=== PATIENT | female | born 1990 | race Caucasian/White ===

== ENCOUNTER → 2020-01-16 18:00 | Outpatient (BNVA) | payer OTHER, SELFPAY | PROVIDERS: Family Provider Family Medicine; PCP Family Medicine; Visit Provider Family Medicine | DX: I10 Essential (primary) hypertension (principal); E03.9 Hypothyroidism, unspecified; F41.1 Generalized anxiety disorder; F32.1 Major depressive disorder, single episode, moderate; I49.3 Ventricular premature depolarization | CPT/HCPCS: 80053; 83735; 84439; 84443; 84481 ==

== ENCOUNTER → 2020-05-23 11:13 | Outpatient (BNVA) | payer OTHER, SELFPAY | PROVIDERS: Family Provider Family Medicine; PCP Family Medicine; Visit Provider Family Medicine | DX: I10 Essential (primary) hypertension (principal); E03.9 Hypothyroidism, unspecified | CPT/HCPCS: 80053; 84439; 84443; 84481 ==

== ENCOUNTER → 2020-10-10 10:31 | Outpatient (BNVA) | payer OTHER, SELFPAY | PROVIDERS: Family Provider Family Medicine; PCP Family Medicine; Visit Provider Family Medicine | DX: E03.9 Hypothyroidism, unspecified (principal); I10 Essential (primary) hypertension; I49.3 Ventricular premature depolarization | CPT/HCPCS: 84443 ==

== ENCOUNTER → 2020-12-17 13:51 | Outpatient (BNVA) | payer OTHER, SELFPAY | PROVIDERS: Family Provider Family Medicine; PCP Family Medicine; Visit Provider Family Medicine | DX: I10 Essential (primary) hypertension (principal); E03.9 Hypothyroidism, unspecified; F32.1 Major depressive disorder, single episode, moderate; R41.840 Attention and concentration deficit; I49.3 Ventricular premature depolarization; Z68.32 Body mass index [BMI] 32.0-32.9, adult | CPT/HCPCS: 80048; 84439; 84443; 84481 ==

== ENCOUNTER → 2021-01-02 07:53 | Outpatient (BNVA) | payer OTHER, SELFPAY | PROVIDERS: Family Provider Family Medicine; PCP Family Medicine; Visit Provider Nurse Practitioner Women's Health | DX: N92.6 Irregular menstruation, unspecified (principal); I10 Essential (primary) hypertension; E03.9 Hypothyroidism, unspecified | CPT/HCPCS: 81025 ==

== ENCOUNTER 2021-01-07 09:49 | Emergency (ER) | payer OTHER, SELFPAY ==
--- NOTE | 2021-01-07 | US_ITS ---
WS: [id number] Obstetrical ultrasound, less than 14 weeks. HISTORY: Cramping and spotting. COMPARISON: None. The cervix is closed. There is an intrauterine gestational sac with a moderate subchorionic bleed. Sa c is irregularly shaped with a mean diameter of 1.2 cm. Consistent with a gestation of 6 weeks and 1 day. [place]-rump length of 0.36 cm consistent with a gestation 6 weeks 0 days. Normal yolk sac. Cardia c activity is identified at 104 cm/s. Gestational sac is low-lying within the endometrial canal. No free fluid. No adnexal masses. US/US OB <=14 wk fetus w transvag IMPRESSION: 1. cardiac activity is identified. 2. Abnormally shaped and positioned gestational sac and subchorionic bleed. Pat ient is at high risk for continuing with spontaneous . 3. [place]-rump length consistent with gestation of 6 weeks and 0 days.
--- NOTE | 2021-01-07 10:34 | US_ITS ---
WS: [id number] Obstetrical ultrasound, less than 14 weeks. HISTORY: Cramping and spotting. COMPARISON: None. The cervix is closed. There is an intrauterine gestational sac with a moderate subchorionic bleed. Sa c is irregularly shaped with a mean diameter of 1.2 cm. Consistent with a gestation of 6 weeks and 1 day. [place]-rump length of 0.36 cm consistent with a gestation 6 weeks 0 days. Normal yolk sac. Cardia c activity is identified at 104 cm/s. Gestational sac is low-lying within the endometrial canal. No free fluid. No adnexal masses.
[2021-01-07 11:33] VITALS: BP 130/87; PULSE 73; RESP 19; TEMP 37.1; O2SAT 100; BMI 32.3
--- NOTE | 2021-01-07 15:35 | W.ED.PREGNAN ---
Documented by User: AUGUST Tony 01/08/21 08:11 HPI - General: Chief complaint: OB/Uterine Contractions Stated complaint: Cramping & Bleeding, sent by OB Time Seen by Provider: 01/07/21 15:35 Source: patient Mode of arrival: ambulatory Limitations: no limitations History of Present Illness: HPI Narrative: Patient is a nice 30-year-old female at approximately 6 weeks here for concerns of vaginal bleeding that began in the middle of the night. She states she woke up to use the restroom and had a very small amount of pinkish-like discharge. She states this morning when she awoke she had bright red bleeding with a small amount of clot. She states bleeding lasted a few hours and then total soaked approximately 2 pads. She states bleeding subsided around 11 this afternoon and has not returned. She is not currently complaining of cramping or pain. Last sexual intercourse was on Wednesday but did not report any bleeding following this. She has not had any new sexual partners. She does not complain of vaginal discharge, odor, or concern for STDs. No urinary symptoms. MD Complaint: vaginal bleeding Onset (ago): hour(s) Pain Consistency: now resolved Severity: mild Vaginal discharge: none Vaginal bleeding: light and clots Date of Last Menstrual Period: 11/25/20 Patient : Yes care: followed by OB Associated symptoms: Deny abdominal pain, dysuria, headache(s), malaise, nausea, vaginal bleeding, vaginal discharge or vomiting Review of Systems Const: Denies: fever(s), chills, body aches, fatigue or malaise Card: Denies: chest pain Resp: Denies: dyspnea GI: Denies: abdominal pain, nausea, vomiting or diarrhea : Reports: vaginal bleeding; Denies: flank pain, dysuria, hematuria, genital lesions, genital pruritis, vaginal odor, vaginal discharge or pelvic pain Musc: Denies: back pain Skin/Breast: Denies: rash Neuro: Denies: headache(s) PFSH ED PFSH: Medical History (Updated 01/07/21 @ 17:28 by AUGUST Chirinos) Depression She was started on prozac in 2019 and started having PVCs. She stopped due to the pvc, and then was shortly after diagnosed with HTN. She feels her depression is intermittent and managed without medication. ANDREA (generalized anxiety disorder) She was started on prozac in 2019 and started having PVCs. She stopped due to the pvc, and then was shortly after diagnosed with HTN. She feels her depression is intermittent and managed without medication. Hypertension She was started on lisinopril in 2019, stopped on 12/27/2020 due to positive . Hypothyroidism PVCs (premature ventricular contractions) managed by PCP Surgical History No pertinent past surgical history Family History Father Depression Diabetes Mother Depression Thyroid disease Grandmother Diabetes Paternal Hypertension paternal Stroke paternal Thyroid disease paternal Breast cancer maternal Family/Other Hypertension sister Grandfather Stroke maternal Denies family history of Colon cancer Ovarian cancer Clotting disorder Bleeding disorder Uterine cancer Female Reproductive History: Date of last menstrual period: 11/25/20 Spontaneous abortions: No Physical Exam Const: COMMON NORMALS: no acute distress, average body habitus, patient oriented x3, no limitations, healthy appearing, alert and well nourished GENERAL APPEARANCE: cooperative Resp: COMMON NORMALS: normal respiratory effort and clear to auscultation bilaterally AUSCULTATION: clear to auscultation bilaterally Cardio: COMMON NORMALS: regular rate and regular rhythm RATE: regular rate RHYTHM: regular rhythm GI: COMMON NORMALS: Normal to inspection, nondistended, normoactive bowel sounds present, Soft to palpation, non-tender, No hepatosplenomegaly present and no masses PALPATION: Yes Soft to palpation and Yes No hepatosplenomegaly present : SPECULUM EXAM - VAGINA: No vaginal bleeding and No tissue present in vagina SPECULUM EXAM - CERVIX: Yes Cervical os closed, No Tissue present in the cervical os, No Cervical bleeding, Yes Abnormal cervical discharge present (mild amount of yellow mucous like discharge), Yes Cervical lesion present (erythema/friability surrounding os; remainder of cervical tissue normal) and Yes Cervical tenderness present BIMANUAL EXAM - VAGINA & UTERUS: Yes Cervical tenderness present OB/EXTERNAL & SPECULUM: no tissue noted in vagina and vaginal bleeding Neuro: COMMON NORMALS: patient oriented x3 SENSORIUM/ORIENTATION: Yes alert Course Vital Signs: Vital signs: Vital Signs Temperature 98.7 F 01/07/21 11:33 Pulse Rate 74 01/07/21 16:27 Respiratory Rate 18 01/07/21 16:27 Blood Pressure 127/85 01/07/21 16:27 Pulse Oximetry 100 01/07/21 16:27 MDM - OB/Uterine Contractions MDM Narrative: Medical decision making narrative: Care is being transferred to Que Rowland PA-C pending labs. US was completed from waiting room and shows an abnormally shaped gestational sac, low lying position within the endometrial canal, and a moderate subchorionic hemorrhage thus making her at high risk for spontaneous AB. On pelvic exam she had a large area of erythema/friability/tenderness surrounding her cervical os with a mild amount of yellow discharge-no diffuse cervicitis. Unknown when her last PAP exam was. Will go ahead and cover empirically with abx at this time and have her follow up with [facility] for further evaluation. Recommend pelvic rest until follow up as well. Lab Data: Labs: Lab Results 01/07/21 01/07/21 01/07/21 15:53 16:20 16:20 WBC 9.9 10^3/uL 10^3/ uL (4.0-10.0) RBC 5.05 10^6/uL 10^6 /uL (4.1-5.3) Hgb 13.9 g/dL g/dL (11.5-15.3) Hct 42.7 % % (37.0-47.0) MCV 84.6 fl fl (81-99) MCH 27.5 pg L pg (28.0-34.0) MCHC 32.6 g/dL g/dL (30.0-36.0) RDW 13.9 % % (12.1-15.1) Plt Count 240 10^3/cmm 10^3 /cmm (130-400) MPV 10.7 fL H fL (7.4-10.4) Neut % (Auto) 73.9 % % Lymph % (Auto) 15.8 % % [place] % (Auto) 7.7 % % Eos % (Auto) 1.9 % % Baso % (Auto) 0.4 % % Neut # (Auto) 7.27 10^3/uL 10^3 /uL (1.8-7.7) Lymph # (Auto) 1.6 10^3/uL 10^3/ uL (0.8-4.8) [place] # (Auto) 0.8 10^3/uL 10^3/ uL (0.2-0.9) Eos # (Auto) 0.2 10^3/uL 10^3/ uL (0.0-0.8) Baso # (Auto) 0.0 10^3/uL 10^3/ uL (0.0-0.1) Nucleated RBC % (a uto) 0 % % Nucleated RBCs # 0.0 /100WBC /100W BC Sodium 136 mmol/L mmol/L (136-145) Potassium 3.7 mmol/L mmol/L (3.5-5.1) Chloride 102 mmol/L mmol/L (98-107) Carbon Dioxide 21 mmol/L L mmol/ L (22-29) Anion Gap 16.7 (5-19) BUN 9 mg/dL mg/dL (6-20) Creatinine 0.5 mg/dL mg/dL (0.5-0.9) GFR Calculation 146.9 mL/min H mL /min (90-130) Glucose 75 mg/dL mg/dL (65-115) Calculated Osmolal ity 279 mOsm/kg L mOs m/kg (285-295) Calcium 9.0 mg/dL mg/dL (8.5-10.5) Total Bilirubin 0.6 mg/dL mg/dL (0.15-1.2) AST 21 U/L U/L (0-32) ALT 48 U/L H U/L (0-33) Alkaline Phosphata se 63 IU/L IU/L (35-105) Total Protein 7.3 g/dL g/dL (6.6-8.7) Albumin 4.1 g/dL g/dL (3.5-5.2) Globulin 3.2 g/dL g/dL (1.3-4.6) Ser , [place] 22652.00 mIU/mL m IU/mL Urine Color Straw (Yellow) Urine Appearance Clear (CLEAR) Urine pH 5 (5-7) Ur Specific Gravit y 1.020 (1.005-1.030) Urine Protein Neg (Negative) Urine Glucose (UA) Norm (Normal) Urine Ketones Negative (Negative) Urine Blood Neg (Negative) Urine Nitrate Negative (Negative) Urine Bilirubin Neg (Negative) Urine Urobilinogen Norm mg/dL mg/dL (Negative) Ur Leukocyte Vanesa ase Negative (Negative) Blood Type Rho(D) Type 01/07/21 16:20 WBC RBC Hgb Hct MCV MCH MCHC RDW Plt Count MPV Neut % (Auto) Lymph % (Auto) [place] % (Auto) Eos % (Auto) Baso % (Auto) Neut # (Auto) Lymph # (Auto) [place] # (Auto) Eos # (Auto) Baso # (Auto) Nucleated RBC % (a uto) Nucleated RBCs # Sodium Potassium Chloride Carbon Dioxide Anion Gap BUN Creatinine GFR Calculation Glucose Calculated Osmolal ity Calcium Total Bilirubin AST ALT Alkaline Phosphata se Total Protein Albumin Globulin Ser , [place] i-Qnt Urine Color Urine Appearance Urine pH Ur Specific Gravit y Urine Protein Urine Glucose (UA) Urine Ketones Urine Blood Urine Nitrate Urine Bilirubin Urine Urobilinogen Ur Leukocyte Vanesa ase Blood Type B Positive Rho(D) Type Positive Imaging Data^: US TV OB: Radiologist's impression: [address] [address] Ultrasound Report Signed Patient: Lucía Ybarra Unit #: [id number] : 1990 Age/Sex: 30 / F ADM Date: 01/07/21 Loc: ER Room/Bed: Attending Dr: Ordering Provider/Ordering MD: Quiana Carmichael Date of Service: 01/07/21 Procedure(s): US OB transvaginal [id number] Accession Number(s): [id number] Report Number: [id number] WS: [id number] Obstetrical ultrasound, less than 14 weeks. HISTORY: Cramping and spotting. COMPARISON: None. The cervix is closed. There is an intrauterine gestational sac with a moderate subchorionic bleed. Sac is irregularly shaped with a mean diameter of 1.2 cm. Consistent with a gestation of 6 weeks and 1 day. [place]-rump length of 0.36 cm consistent with a gestation 6 weeks 0 days. Normal yolk sac. Cardiac activity is identified at 104 cm/s. Gestational sac is low-lying within the endometrial canal. No free fluid. No adnexal masses. US/US OB transvaginal [id number] IMPRESSION: 1. cardiac activity is identified. 2. Abnormally shaped and positioned gestational sac and subchorionic bleed. Patient is at high risk for continuing with spontaneous . 3. [place]-rump length consistent with gestation of 6 weeks and 0 days. Dictated By: Marly Sarmiento DO Signed By: Marly Sarmiento DO Signed Date/Time: 01/07/21 1431 Discharge Plan Discharge Patient Disposition: Home Clinical Impression: Threatened miscarriage Condition: Stable Prescriptions: No Action levothyroxine 125 mcg tablet 125 mcg .ROUTE DAILY 30 Days Qty: 30 RF: 2 Discharge Orders: Discharge ED (Routine); Ordered 01/07/21 Ordered By: Que Rowland Referrals: Daksha Rodriguez MD [Primary Care Provider] - Discharge Diet: Regular Discharge Activity: Limit activity as instructed Patient Instructions: Threatened Miscarriage (ED), Pelvic Rest (ED) Activity Restrictions/Additional Instructions: Follow-up with OB doctor within the next 3 to 5 days for reevaluation. Return to the ER or your medical provider if condition worsens (fever, heavy bleeding, abdominal pain, N/V). Please read and understand discharge instructions. US findings: 1. cardiac activity is identified. [place]-rump length consistent with gestation of 6 weeks and 0 days. 2. Abnormally shaped and positioned gestational sac and subchorionic bleed. Patient is at high risk for continuing with spontaneous . Thank you for choosing [facility] for your healthcare needs today. Please realize this is an emergency room and that we are providing you with a medical screening exam and this may not be complete and all inclusive of all the testing and or work up that you may need to determine your ailment or severity of your illness. It is very important that you follow up as instructed or that you return to the Emergency Department should you have concerns or if your condition changes or worsens in any way. Stand Alone Forms: Work/School Release Sign Out Sign Out Data: Patient Sign Out occurred on 01/07/21 at 17:07. Patient's care was discussed, and care was transferred from to AUGUST Chirinos. Coding Level of Care Code ED Lathe Operator for Chg Fwd Exam Detailed Documented by User: AUGUST Chirinos 01/08/21 03:04 HPI - General: Chief complaint: OB/Uterine Contractions Stated complaint: Cramping & Bleeding, sent by OB Time Seen by Provider: 01/07/21 15:35 PFSH ED PFSH: Medical History (Updated 01/07/21 @ 17:28 by AUGUST Chirinos) Depression She was started on prozac in 2019 and started having PVCs. She stopped due to the pvc, and then was shortly after diagnosed with HTN. She feels her depression is intermittent and managed without medication. ANDREA (generalized anxiety disorder) She was started on prozac in 2019 and started having PVCs. She stopped due to the pvc, and then was shortly after diagnosed with HTN. She feels her depression is intermittent and managed without medication. Hypertension She was started on lisinopril in 2019, stopped on 12/27/2020 due to positive . Hypothyroidism PVCs (premature ventricular contractions) managed by PCP Surgical History No pertinent past surgical history Family History Father Depression Diabetes Mother Depression Thyroid disease Grandmother Diabetes Paternal Hypertension paternal Stroke paternal Thyroid disease paternal Breast cancer maternal Family/Other Hypertension sister Grandfather Stroke maternal Denies family history of Colon cancer Ovarian cancer Clotting disorder Bleeding disorder Uterine cancer Course Vital Signs: Vital signs: Vital Signs Temperature 98.7 F 01/07/21 11:33 Pulse Rate 74 01/07/21 16:27 Respiratory Rate 18 01/07/21 16:27 Blood Pressure 127/85 01/07/21 16:27 Pulse Oximetry 100 01/07/21 16:27 MDM - OB/Uterine Contractions MDM Narrative: Medical decision making narrative: Patient is a 30-year-old female comes to the ED with vaginal bleeding and is approximately 6 weeks . Patient had some heavy bleeding in the morning but then it resolved around lunchtime today and she has not had any reoccurring bleeding since. Patient appears nontoxic in no acute distress or pain. Vitals are stable. CBC, CMP are unremarkable. hCG 15,822. Rh type positive. UA unremarkable. Wet prep showed no acute findings. Gonorrhea and Chlamydia panel pending. Ultrasound showed cardiac activity with gestation of around 6 weeks. Abnormally shaped and positioned gestational sac and subchorionic bleeding noted as well. Patient is at high risk of miscarriage. Patient was given prophylactic treatment here in the ED for gonorrhea and chlamydia with Rocephin and azithromycin. A referral to women's health was placed for abnormal cervix and threatened . Patient was diagnosed with threatened and discharged home. She was told to be on pelvic rest. Return to ED precautions given. Patient was told case management will be contacting them in the next several days set up an appointment with women's health. Lab Data: Attestation: I reviewed the patient's lab results. Labs: Lab Results 01/07/21 01/07/21 01/07/21 15:53 16:20 16:20 WBC 9.9 10^3/uL 10^3/ uL (4.0-10.0) RBC 5.05 10^6/uL 10^6 /uL (4.1-5.3) Hgb 13.9 g/dL g/dL (11.5-15.3) Hct 42.7 % % (37.0-47.0) MCV 84.6 fl fl (81-99) MCH 27.5 pg L pg (28.0-34.0) MCHC 32.6 g/dL g/dL (30.0-36.0) RDW 13.9 % % (12.1-15.1) Plt Count 240 10^3/cmm 10^3 /cmm (130-400) MPV 10.7 fL H fL (7.4-10.4) Neut % (Auto) 73.9 % % Lymph % (Auto) 15.8 % % [place] % (Auto) 7.7 % % Eos % (Auto) 1.9 % % Baso % (Auto) 0.4 % % Neut # (Auto) 7.27 10^3/uL 10^3 /uL (1.8-7.7) Lymph # (Auto) 1.6 10^3/uL 10^3/ uL (0.8-4.8) [place] # (Auto) 0.8 10^3/uL 10^3/ uL (0.2-0.9) Eos # (Auto) 0.2 10^3/uL 10^3/ uL (0.0-0.8) Baso # (Auto) 0.0 10^3/uL 10^3/ uL (0.0-0.1) Nucleated RBC % (a uto) 0 % % Nucleated RBCs # 0.0 /100WBC /100W BC Sodium 136 mmol/L mmol/L (136-145) Potassium 3.7 mmol/L mmol/L (3.5-5.1) Chloride 102 mmol/L mmol/L (98-107) Carbon Dioxide 21 mmol/L L mmol/ L (22-29) Anion Gap 16.7 (5-19) BUN 9 mg/dL mg/dL (6-20) Creatinine 0.5 mg/dL mg/dL (0.5-0.9) GFR Calculation 146.9 mL/min H mL /min (90-130) Glucose 75 mg/dL mg/dL (65-115) Calculated Osmolal ity 279 mOsm/kg L mOs m/kg (285-295) Calcium 9.0 mg/dL mg/dL (8.5-10.5) Total Bilirubin 0.6 mg/dL mg/dL (0.15-1.2) AST 21 U/L U/L (0-32) ALT 48 U/L H U/L (0-33) Alkaline Phosphata se 63 IU/L IU/L (35-105) Total Protein 7.3 g/dL g/dL (6.6-8.7) Albumin 4.1 g/dL g/dL (3.5-5.2) Globulin 3.2 g/dL g/dL (1.3-4.6) Ser , [place] i[place]Qnt 38506.00 mIU/mL m IU/mL Urine Color Straw (Yellow) Urine Appearance Clear (CLEAR) Urine pH 5 (5-7) Ur Specific Gravit y 1.020 (1.005-1.030) Urine Protein Neg (Negative) Urine Glucose (UA) Norm (Normal) Urine Ketones Negative (Negative) Urine Blood Neg (Negative) Urine Nitrate Negative (Negative) Urine Bilirubin Neg (Negative) Urine Urobilinogen Norm mg/dL mg/dL (Negative) Ur Leukocyte Vanesa ase Negative (Negative) Blood Type Rho(D) Type 01/07/21 16:20 WBC RBC Hgb Hct MCV MCH MCHC RDW Plt Count MPV Neut % (Auto) Lymph % (Auto) [place] % (Auto) Eos % (Auto) Baso % (Auto) Neut # (Auto) Lymph # (Auto) [place] # (Auto) Eos # (Auto) Baso # (Auto) Nucleated RBC % (a uto) Nucleated RBCs # Sodium Potassium Chloride Carbon Dioxide Anion Gap BUN Creatinine GFR Calculation Glucose Calculated Osmolal ity Calcium Total Bilirubin AST ALT Alkaline Phosphata se Total Protein Albumin Globulin Ser , [place] i-Qnt Urine Color Urine Appearance Urine pH Ur Specific Gravit y Urine Protein Urine Glucose (UA) Urine Ketones Urine Blood Urine Nitrate Urine Bilirubin Urine Urobilinogen Ur Leukocyte Vanesa ase Blood Type B Positive Rho(D) Type Positive Discharge Plan Discharge Patient Disposition: Home Clinical Impression: Threatened miscarriage Condition: Stable Prescriptions: No Action levothyroxine 125 mcg tablet 125 mcg .ROUTE DAILY 30 Days Qty: 30 RF: 2 Discharge Orders: Discharge ED (Routine); Ordered 01/07/21 Ordered By: Que Rowland Referrals: Daksha Rodriguez MD [Primary Care Provider] - Discharge Diet: Regular Discharge Activity: Limit activity as instructed Patient Instructions: Threatened Miscarriage (ED), Pelvic Rest (ED) Activity Restrictions/Additional Instructions: Follow-up with OB doctor within the next 3 to 5 days for reevaluation. Return to the ER or your medical provider if condition worsens (fever, heavy bleeding, abdominal pain, N/V). Please read and understand discharge instructions. US findings: 1. cardiac activity is identified. [place]-rump length consistent with gestation of 6 weeks and 0 days. 2. Abnormally shaped and positioned gestational sac and subchorionic bleed. Patient is at high risk for continuing with spontaneous . Thank you for choosing [facility] for your healthcare needs today. Please realize this is an emergency room and that we are providing you with a medical screening exam and this may not be complete and all inclusive of all the testing and or work up that you may need to determine your ailment or severity of your illness. It is very important that you follow up as instructed or that you return to the Emergency Department should you have concerns or if your condition changes or worsens in any way. Stand Alone Forms: Work/School Release Sign Out Sign Out Data: Patient Sign Out occurred on 01/07/21 at 17:07. Patient's care was discussed, and care was transferred from to AUGUST Chirinos. Coding Level of Care Code ED Lathe Operator for Chg Fwd Exam Detailed Documented by User: Gomez Schilling DO 01/08/21 06:08 HPI - General: Chief complaint: OB/Uterine Contractions Stated complaint: Cramping & Bleeding, sent by OB Time Seen by Provider: 01/07/21 15:35 PFSH ED PFSH: Medical History (Updated 01/07/21 @ 17:28 by AUGUST Chirinos) Depression She was started on prozac in 2019 and started having PVCs. She stopped due to the pvc, and then was shortly after diagnosed with HTN. She feels her depression is intermittent and managed without medication. ANDREA (generalized anxiety disorder) She was started on prozac in 2019 and started having PVCs. She stopped due to the pvc, and then was shortly after diagnosed with HTN. She feels her depression is intermittent and managed without medication. Hypertension She was started on lisinopril in 2019, stopped on 12/27/2020 due to positive . Hypothyroidism PVCs (premature ventricular contractions) managed by PCP Surgical History No pertinent past surgical history Family History Father Depression Diabetes Mother Depression Thyroid disease Grandmother Diabetes Paternal Hypertension paternal Stroke paternal Thyroid disease paternal Breast cancer maternal Family/Other Hypertension sister Grandfather Stroke maternal Denies family history of Colon cancer Ovarian cancer Clotting disorder Bleeding disorder Uterine cancer Course Vital Signs: Vital signs: Vital Signs Temperature 98.7 F 01/07/21 11:33 Pulse Rate 74 01/07/21 16:27 Respiratory Rate 18 01/07/21 16:27 Blood Pressure 127/85 01/07/21 16:27 Pulse Oximetry 100 01/07/21 16:27 MDM - OB/Uterine Contractions MDM Narrative: Medical decision making narrative: Patient seen by AUGUST Tony. Chart reviewed agree with assessment and plan Lab Data: Labs: Lab Results 01/07/21 01/07/21 01/07/21 15:53 16:20 16:20 WBC 9.9 10^3/uL 10^3/ uL (4.0-10.0) RBC 5.05 10^6/uL 10^6 /uL (4.1-5.3) Hgb 13.9 g/dL g/dL (11.5-15.3) Hct 42.7 % % (37.0-47.0) MCV 84.6 fl fl (81-99) MCH 27.5 pg L pg (28.0-34.0) MCHC 32.6 g/dL g/dL (30.0-36.0) RDW 13.9 % % (12.1-15.1) Plt Count 240 10^3/cmm 10^3 /cmm (130-400) MPV 10.7 fL H fL (7.4-10.4) Neut % (Auto) 73.9 % % Lymph % (Auto) 15.8 % % [place] % (Auto) 7.7 % % Eos % (Auto) 1.9 % % Baso % (Auto) 0.4 % % Neut # (Auto) 7.27 10^3/uL 10^3 /uL (1.8-7.7) Lymph # (Auto) 1.6 10^3/uL 10^3/ uL (0.8-4.8) [place] # (Auto) 0.8 10^3/uL 10^3/ uL (0.2-0.9) Eos # (Auto) 0.2 10^3/uL 10^3/ uL (0.0-0.8) Baso # (Auto) 0.0 10^3/uL 10^3/ uL (0.0-0.1) Nucleated RBC % (a uto) 0 % % Nucleated RBCs # 0.0 /100WBC /100W BC Sodium 136 mmol/L mmol/L (136-145) Potassium 3.7 mmol/L mmol/L (3.5-5.1) Chloride 102 mmol/L mmol/L (98-107) Carbon Dioxide 21 mmol/L L mmol/ L (22-29) Anion Gap 16.7 (5-19) BUN 9 mg/dL mg/dL (6-20) Creatinine 0.5 mg/dL mg/dL (0.5-0.9) GFR Calculation 146.9 mL/min H mL /min (90-130) Glucose 75 mg/dL mg/dL (65-115) Calculated Osmolal ity 279 mOsm/kg L mOs m/kg (285-295) Calcium 9.0 mg/dL mg/dL (8.5-10.5) Total Bilirubin 0.6 mg/dL mg/dL (0.15-1.2) AST 21 U/L U/L (0-32) ALT 48 U/L H U/L (0-33) Alkaline Phosphata se 63 IU/L IU/L (35-105) Total Protein 7.3 g/dL g/dL (6.6-8.7) Albumin 4.1 g/dL g/dL (3.5-5.2) Globulin 3.2 g/dL g/dL (1.3-4.6) Ser , [place]Qnt 25360.00 mIU/mL m IU/mL Urine Color Straw (Yellow) Urine Appearance Clear (CLEAR) Urine pH 5 (5-7) Ur Specific Gravit y 1.020 (1.005-1.030) Urine Protein Neg (Negative) Urine Glucose (UA) Norm (Normal) Urine Ketones Negative (Negative) Urine Blood Neg (Negative) Urine Nitrate Negative (Negative) Urine Bilirubin Neg (Negative) Urine Urobilinogen Norm mg/dL mg/dL (Negative) Ur Leukocyte Vanesa ase Negative (Negative) Blood Type Rho(D) Type 01/07/21 16:20 WBC RBC Hgb Hct MCV MCH MCHC RDW Plt Count MPV Neut % (Auto) Lymph % (Auto) [place] % (Auto) Eos % (Auto) Baso % (Auto) Neut # (Auto) Lymph # (Auto) [place] # (Auto) Eos # (Auto) Baso # (Auto) Nucleated RBC % (a uto) Nucleated RBCs # Sodium Potassium Chloride Carbon Dioxide Anion Gap BUN Creatinine GFR Calculation Glucose Calculated Osmolal ity Calcium Total Bilirubin AST ALT Alkaline Phosphata se Total Protein Albumin Globulin Ser , [place] i-Qnt Urine Color Urine Appearance Urine pH Ur Specific Gravit y Urine Protein Urine Glucose (UA) Urine Ketones Urine Blood Urine Nitrate Urine Bilirubin Urine Urobilinogen Ur Leukocyte Vanesa ase Blood Type B Positive Rho(D) Type Positive Discharge Plan Discharge Patient Disposition: Home Clinical Impression: Threatened miscarriage Condition: Stable Prescriptions: No Action levothyroxine 125 mcg tablet 125 mcg .ROUTE DAILY 30 Days Qty: 30 RF: 2 Discharge Orders: Discharge ED (Routine); Ordered 01/07/21 Ordered By: Que Rowland Referrals: Daksha Rodriguez MD [Primary Care Provider] - Discharge Diet: Regular Discharge Activity: Limit activity as instructed Patient Instructions: Threatened Miscarriage (ED), Pelvic Rest (ED) Activity Restrictions/Additional Instructions: Follow-up with OB doctor within the next 3 to 5 days for reevaluation. Return to the ER or your medical provider if condition worsens (fever, heavy bleeding, abdominal pain, N/V). Please read and understand discharge instructions. US findings: 1. cardiac activity is identified. [place]-rump length consistent with gestation of 6 weeks and 0 days. 2. Abnormally shaped and positioned gestational sac and subchorionic bleed. Patient is at high risk for continuing with spontaneous . Thank you for choosing [facility] for your healthcare needs today. Please realize this is an emergency room and that we are providing you with a medical screening exam and this may not be complete and all inclusive of all the testing and or work up that you may need to determine your ailment or severity of your illness. It is very important that you follow up as instructed or that you return to the Emergency Department should you have concerns or if your condition changes or worsens in any way. Stand Alone Forms: Work/School Release Sign Out Sign Out Data: Patient Sign Out occurred on 01/07/21 at 17:07. Patient's care was discussed, and care was transferred from to AUGUST Chirinos. Coding Level of Care Code ED Lathe Operator for Chg Fwd Exam Detailed
[2021-01-07 16:06] LABS: Add Urine Microscopic? NO; Charge for UA Resulting for Rev
[2021-01-07 16:21] LABS: Bilirubin Urine Neg (Negative); Blood Urine Neg (Negative); Glucose Urine UA Norm (Normal); Ketones Urine Negative (Negative); Leukocyte Esterase Urine Negative (Negative); Nitrate Urine Negative (Negative); Protein Urine Neg (Negative); Urine Appearance Clear (CLEAR); Urine Color Straw (Yellow); Urobilinogen Urine Norm (Negative); pH Urine 5 (5-7)
[2021-01-07 16:27] VITALS: BP 127/85; PULSE 74; RESP 18; O2SAT 100
[2021-01-07 16:29] LABS: Basophils % 0.4 %; Eosinophils # 0.2 10^3/uL (0.0-0.8); Eosinophils % 1.9 %; Hematocrit 42.7 % (37.0-47.0); Hemoglobin 13.9 g/dL (11.5-15.3); Lymphocytes # 1.6 10^3/uL (0.8-4.8); Lymphocytes % 15.8 %; Mean Corpuscular HGB Conc 32.6 g/dL (30.0-36.0); Mean Corpuscular Hemoglobin 27.5 pg (28.0-34.0); Mean Corpuscular Volume 84.6 fl (81-99); Mean Platelet Volume 10.7 fL (7.4-10.4); Monocytes # 0.8 10^3/uL (0.2-0.9); Monocytes % 7.7 %; Neutrophils # 7.27 10^3/uL (1.8-7.7); Neutrophils % 73.9 %; Nucleated Red Blood Cells % 0 %; Platelet Count 240 10^3/cmm (130-400); Red Blood Count 5.05 10^6/uL (4.1-5.3); Red Cell Distribution Width 13.9 % (12.1-15.1); White Blood Count 9.9 10^3/uL (4.0-10.0)
[2021-01-07 17:20] LABS: Alanine Aminotransferase 48 U/L (0-33); Albumin Level 4.1 g/dL (3.5-5.2); Alkaline Phosphatase 63 IU/L (35-105); Anion Gap 16.7 (5-19); Aspartate Amino Transferase 21 U/L (0-32); Blood Urea Nitrogen 9 mg/dL (6-20); Carbon Dioxide 21 mmol/L (22-29); Chloride 102 mmol/L (98-107); Globulin 3.2 g/dL (1.3-4.6); Glomerular Filtration Rate 146.9 mL/min (90-130); Glucose 75 mg/dL (65-115); Osmolality Calculated 279 mOsm/kg (285-295); Potassium 3.7 mmol/L (3.5-5.1); Sodium 136 mmol/L (136-145); Total Bilirubin 0.6 mg/dL (0.15-1.2); Total Protein 7.3 g/dL (6.6-8.7)
[2021-01-07] MEDS: azithromycin 250 mg Tablet 1000 MG PO (17:43)
--- NOTE | 2021-01-13 15:41 | DCPLANNER ---
generation manager had message to schedule a follow up appointment for patient with [facility]. generation manager called the [facility] clinic, spoke with Guillaume, gave clinic patients information. generation manager was told that patients information would be printed and reviewed. Clinic will call patient with appointment information.
--- NOTE | 2021-02-06 10:49 | DCPLANNER ---
Patient had a follow up appointment for patient with [facility] - patient did attend appointment.
== END 2021-01-07 17:52 | disposition home or self-care (01) ==
PROVIDERS: Physician Assistant; Emergency Provider Physician Assistant; PCP Family Medicine
DX: O20.0 Threatened abortion (principal); O10.011 Pre-existing essential hypertension complicating pregnancy, first trimester; Z3A.01 Less than 8 weeks gestation of pregnancy
CPT/HCPCS: 36415; 76801; 76817; 80053; 81003; 84702; 85025; 86900; 87210; 87491; 87591; 96372; 99283; J0696; Q0144

== ENCOUNTER → 2021-02-04 12:32 | Outpatient (BNVA) | payer OTHER, SELFPAY | PROVIDERS: PCP Family Medicine; Visit Provider Obstetrics & Gynecology | DX: Z34.90 Encounter for supervision of normal pregnancy, unspecified, unspecified trimester (principal) | CPT/HCPCS: 80053; 80307; 82570; 84156; 84315; 84443; 84550; 85027; 86592; 86762; 86803; 86850; 86900; 87086; 87340; 87806 ==

== ENCOUNTER → 2021-02-24 15:31 | Outpatient (BNVA) | payer OTHER, SELFPAY | PROVIDERS: PCP Family Medicine; Visit Provider Obstetrics & Gynecology | DX: O09.90 Supervision of high risk pregnancy, unspecified, unspecified trimester (principal) | CPT/HCPCS: 84156; 84315; 88175 ==

== ENCOUNTER → 2021-03-19 08:19 | Outpatient (BNVA) | payer OTHER, SELFPAY | PROVIDERS: PCP Family Medicine; Visit Provider Nurse Practitioner Women's Health | DX: O09.90 Supervision of high risk pregnancy, unspecified, unspecified trimester (principal) | CPT/HCPCS: 84315; 84443 ==

== ENCOUNTER 2021-03-25 13:05 | Outpatient (CLI) | payer OTHER, MEDICAID, SELFPAY ==
--- NOTE | 2021-03-25 13:08 | USCV_ITS ---
Lucía Ybarra Age: 31 Gender: F : 1990 Exam Date: 03/25/2021 13:42 Ordering Phys: Adore Hastings MD Technologist: TWIN Exam Location: [facility] [place] Indication: Essential primary hypertension BP: 124 / 80 HR: 75 Rhythm: Sinus Technical Quality: Adequate MEASUREMENTS (Male / Female) Normal Values 2D ECHO LV Diastolic Diameter PLAX 4.6 cm 4.2 - 5.9 / 3.9 - 5.3 cm LV Systolic Diameter PLAX 3.1 cm IVS Diastolic Thickness 0.9 cm 0.6 - 1.0 / 0.6 - 0.9 cm IVS Systolic Thickness 1.2 cm LVPW Diastolic Thickness 1.2 cm 0.6 - 1.0 / 0.6 - 0.9 cm LVPW Systolic Thickness 1.6 cm RV Chamber Size 3.2 cm LVOT Diameter 2.0 cm LV Ejection Fraction 2D Teich 60.3 % LV Ejection Fraction MOD 2C 61.6 % LV Ejection Fraction 2C AL 61.7 % LA Diameter 3.5 cm LA Width 2.9 cm LA Height 5.2 cm RA Width 2.7 cm RA Height 4.6 cm Aorta at Sinotubular Diameter 2.5 cm M-MODE Aortic Annulus Diameter 2.3 cm LA Ao Ratio MM 1.5 MV E Point Septal Separation 0.7 cm DOPPLER AV Peak Velocity 142.0 cm/s LVOT Peak Velocity 112.0 cm/s AV Area Cont Eq vti 2.4 cm squared AV Area Cont Eq pk 2.5 cm squared MV Area PHT 3.9 cm squared Mitral E to A Ratio 1.6 MV E' Velocity 52.5 cm/s Mitral E to MV E' Ratio 5.4 Mitral E to LV E' Lateral Ratio 5.0 Mitral E to LV E' Septal Ratio 5.8 TR Peak Velocity 201.4 cm/s TR Peak Gradient 16.2 mmHg TR Mean Velocity 129.0 cm/s TR Mean Gradient 7.4 mmHg TR Velocity Time Integral 43.0 cm TV Peak E Velocity 81.0 cm/s Right Atrial Pressure 3.0 mmHg Pulmonary Artery Systolic Pressu 19.2 mmHg PV Peak Velocity 129.0 cm/s RV Acceleration Time 0.2 s RV Ejection Time 0.3 s RV AcT/ET 0.5 FINDINGS Left Ventricle Normal left ventricular size and systolic function, EF 61 %. No regional wall motion abnormalities. (Patient is 17 weeks ) Right Ventricle The right ventricle is normal in size and function. Right Atrium The right atrium is normal in size. Left Atrium The left atrium is normal in size. Mitral Valve No gross abnormalities noted Aortic Valve No gross abnormalities noted Tricuspid Valve No gross abnormalities noted Pulmonic Valve Structurally normal pulmonic valve without significant stenosis. There is no pulmonic regurgitation. Pericardium No significant pericardial effusion Aorta Normal aortic annulus size. CONCLUSIONS Normal left ventricular size and systolic function, EF 61 %. No regional wall motion abnormalities. There is no pericardial effusion. There are no intracardiac masses. No evidence of aortic coarctation No previous study is available for comparison. Dr Fermín Cage MD FACC (Electronically Signed) Final Date: 25 March 2021 19:23 S
--- NOTE | 2021-03-25 14:21 | ECG_ITS ---
[facility] Test Date: 2021-03-25 Pat Name: Lucía Ybarra Department: Room: Gender: Female Financial Underwriter: : 1990 Requested By: Adore Hastings Order Number: [id number] Reading MD: Fermín Cage M.D. Measurements Intervals [place] Rate: 69 P: 22 VT: 138 QRS: 70 QRSD: 94 T: 18 QT: 364 QTc: 392 Interpretive Statements SINUS RHYTHM INTERPRETATION BASED ON A DEFAULT AGE OF 40 YEARS No previous ECG available for comparison Electronically Signed On 03-26-2021 0:15:02 COMMUNICATIONS DEPARTMENT HEAD by Fermín Cage M.D. [email or web address] biloxiForwardMetricsholzer health systemDesign LED Products/store/[id number] f
== END 2021-03-25 13:06 | disposition home or self-care (01) ==
LOC: RAD 13:06
PROVIDERS: PCP Family Medicine; Visit Provider Obstetrics & Gynecology
DX: I10 Essential (primary) hypertension (principal)
CPT/HCPCS: 93005; 93306

== ENCOUNTER → 2021-04-17 14:40 | Outpatient (BNVA) | payer MEDICAID, SELFPAY | PROVIDERS: PCP Family Medicine; Visit Provider Emergency Medicine | DX: Z20.822 Contact with and (suspected) exposure to COVID-19 (principal) | CPT/HCPCS: 87635 ==

== ENCOUNTER → 2021-04-28 10:14 | Outpatient (BNVA) | payer MEDICAID, SELFPAY | PROVIDERS: PCP Family Medicine; Visit Provider Obstetrics & Gynecology | DX: O09.90 Supervision of high risk pregnancy, unspecified, unspecified trimester (principal); E03.9 Hypothyroidism, unspecified | CPT/HCPCS: 81000; 84443 ==

== ENCOUNTER → 2021-05-29 08:19 | Outpatient (BNVA) | payer MEDICAID, SELFPAY | PROVIDERS: PCP Family Medicine; Visit Provider Nurse Practitioner Women's Health | DX: O98.519 Other viral diseases complicating pregnancy, unspecified trimester (principal); F41.9 Anxiety disorder, unspecified; F32.A Depression, unspecified; I10 Essential (primary) hypertension; E03.9 Hypothyroidism, unspecified; U07.1 COVID-19 | CPT/HCPCS: 81000 ==

== ENCOUNTER → 2021-06-04 10:08 | Outpatient (BNVA) | payer MEDICAID, SELFPAY | PROVIDERS: PCP Family Medicine; Visit Provider Internal Medicine Cardiovascular Disease | DX: E03.9 Hypothyroidism, unspecified (principal); I49.3 Ventricular premature depolarization; F41.9 Anxiety disorder, unspecified; F32.A Depression, unspecified; I10 Essential (primary) hypertension | CPT/HCPCS: 99203; 99204 ==

== ENCOUNTER → 2021-06-09 10:32 | Outpatient (BNVA) | payer MEDICAID, SELFPAY | PROVIDERS: PCP Family Medicine; Visit Provider Obstetrics & Gynecology | DX: O99.283 Endocrine, nutritional and metabolic diseases complicating pregnancy, third trimester; O10.013 Pre-existing essential hypertension complicating pregnancy, third trimester; O99.343 Other mental disorders complicating pregnancy, third trimester; O99.413 Diseases of the circulatory system complicating pregnancy, third trimester; Z86.16 Personal history of COVID-19; Z3A.28 28 weeks gestation of pregnancy; E03.9 Hypothyroidism, unspecified; F41.9 Anxiety disorder, unspecified; F32.A Depression, unspecified; I49.3 Ventricular premature depolarization | CPT/HCPCS: 82570; 82950; 84156; 84315; 84443; 85027; 87086 ==

== ENCOUNTER → 2021-06-18 13:50 | Outpatient (BNVA) | payer MEDICAID, SELFPAY | PROVIDERS: PCP Family Medicine; Visit Provider Obstetrics & Gynecology | DX: O09.90 Supervision of high risk pregnancy, unspecified, unspecified trimester (principal); I10 Essential (primary) hypertension | CPT/HCPCS: 81000; 82570; 84156 ==

== ENCOUNTER → 2021-07-08 09:44 | Outpatient (BNVA) | payer MEDICAID, SELFPAY | PROVIDERS: PCP Family Medicine; Visit Provider Obstetrics & Gynecology | DX: O09.90 Supervision of high risk pregnancy, unspecified, unspecified trimester (principal) | CPT/HCPCS: 81000; 84443; 87086 ==

== ENCOUNTER → 2021-07-15 10:28 | Outpatient (BNVA) | payer MEDICAID, SELFPAY | PROVIDERS: PCP Family Medicine; Visit Provider Obstetrics & Gynecology | DX: O09.90 Supervision of high risk pregnancy, unspecified, unspecified trimester (principal) | CPT/HCPCS: 81000 ==

== ENCOUNTER → 2021-07-22 08:27 | Outpatient (BNVA) | payer MEDICAID, SELFPAY | PROVIDERS: PCP Family Medicine; Visit Provider Obstetrics & Gynecology | DX: O09.90 Supervision of high risk pregnancy, unspecified, unspecified trimester (principal); O24.419 Gestational diabetes mellitus in pregnancy, unspecified control | CPT/HCPCS: 81000 ==

== ENCOUNTER → 2021-07-28 10:20 | Outpatient (BNVA) | payer MEDICAID, SELFPAY | PROVIDERS: PCP Family Medicine; Visit Provider Obstetrics & Gynecology | DX: O09.90 Supervision of high risk pregnancy, unspecified, unspecified trimester (principal) | CPT/HCPCS: 81000; 87081 ==

== ENCOUNTER 2021-08-18 21:27 | Inpatient (IN) | payer MEDICAID, SELFPAY ==
[2021-08-18] VITALS (12 sets, daily range): BP systolic 121–147; BP diastolic 66–92; PULSE 81–102; RESP 17; TEMP 36.4; BMI 35.6
[2021-08-18 21:57] LABS: Basophils % 0.2 %; Eosinophils # 0.2 10^3/uL (0.0-0.8); Hemoglobin 11.4 g/dL (11.5-15.3); Lymphocytes # 1.6 10^3/uL (0.8-4.8); Lymphocytes % 13.7 %; Mean Corpuscular HGB Conc 31.7 g/dL (30.0-36.0); Mean Corpuscular Hemoglobin 25.1 pg (28.0-34.0); Mean Corpuscular Volume 79.1 fl (81-99); Mean Platelet Volume 12.1 fL (7.4-10.4); Monocytes # 0.6 10^3/uL (0.2-0.9); Monocytes % 5.5 %; Neutrophils # 8.88 10^3/uL (1.8-7.7); Neutrophils % 78.2 %; Nucleated Red Blood Cells % 0 %; Platelet Count 222 10^3/cmm (130-400); Red Blood Count 4.55 10^6/uL (4.1-5.3); Red Cell Distribution Width 13.9 % (12.1-15.1); White Blood Count 11.4 10^3/uL (4.0-10.0)
[2021-08-18 22:04] LABS: Glucose Point of Care 177 mg/dL (70-110)
[2021-08-18 22:24] LABS: Glucose Urine UA 2+ (Normal); Ketones Urine 1+ (Negative); Protein Urine Neg (Negative); Specific Gravity, Urine 1.025 (1.005-1.030); Urine Appearance Hazy (CLEAR); Urine Color Yellow (Yellow); pH Urine 5 (5-7)
[2021-08-18 22:25] LABS: Add Urine Microscopic? YES; Bilirubin Urine Neg (Negative); Blood Urine 2+ (Negative); Leukocyte Esterase Urine Negative (Negative); Nitrate Urine Negative (Negative); Urobilinogen Urine 1 mg/dL (Negative)
[2021-08-18 22:27] LABS: WBC Urine 0-4 /hpf (0-5)
[2021-08-18 22:28] LABS: Add Urine Culture? No; Bacteria Urine TRACE /hpf; Mucus Urine 2+ /hpf
[2021-08-18] MEDS: insulin nph human 100 units/1 mL 6 UNIT SUBCUT (22:32)
[2021-08-18 22:35] LABS: UPRO/UCREAT Ratio 0.11 mg/mg CR; Urine Creatinine 179 mg/dL (28-217); Urine Protein Random 19 mg/dL
[2021-08-18] MEDS: lactated ringers 1,000 ML 999 ML IV (22:36)
[2021-08-19] VITALS (57 sets, daily range): BP systolic 108–176; BP diastolic 57–98; PULSE 61–98; RESP 16; TEMP 36.1
[2021-08-19] MEDS: lactated ringers 1,000 ML 125 ML IV (03:18)
[2021-08-19] MEDS: miSOPROStol 100 mcg tablet 25 MCG VAGINAL ×2 (03:51→08:09)
[2021-08-19] MEDS: dextrose 5%-lactated ringers 1,000 ML 125 ML IV (06:44)
[2021-08-19 07:04] LABS: Glucose Point of Care 90 mg/dL (70-110)
[2021-08-19] MEDS: fentaNYL 50 mcg/mL INJ 2mL IVP (09:58)
[2021-08-19] MEDS: lactated ringers 1,000 ML 999 ML IV (10:06)
[2021-08-19] MEDS: oxytocin 30 UNIT/500 ML BAG 600 UNIT IV (10:31)
[2021-08-19] MEDS: lidocaine 2% INJ 20 mL INJECTION (10:33)
--- NOTE | 2021-08-19 12:17 | P.PCNOB_ITS ---
Delivery Note: Date of delivery: August 19, 2021 - PRE-DELIVERY DIAGNOSIS: 31-year-old 2 para 1-0-0-1 at 38 weeks and 1 day gestation Gestational diabetic on insulin-not well controlled Chronic hypertension-not on any medication, on aspirin COVID in -asymptomatic Anxiety and depression on medication Hypothyroidism on medication POST-DELIVERY DIAGNOSIS: Vaginal delivery on 08/19/2021 Chronic hypertension-not on any medication, on aspirin COVID in -asymptomatic Anxiety and depression on medication Hypothyroidism on medication PROCEDURE: Vaginal delivery on 08/19/2021 ANESTHESIA: 2% lidocaine DELIVERING PHYSICIAN: Adore Dillon FACOG PRE-DELIVERY COURSE: Ms. Ybarra is a 31-year-old 2 para 1-0-0-1 at 38 weeks and 0 days who was admitted to labor and delivery for scheduled induction of labor for poorly controlled gestational diabetes on insulin. She was admitted at about 9 PM but induction was only started at 3 AM due to staffing ratios. On admission she was doing well and tracing was category 1 and she was overall comfortable. She had a category 1 tracing and cervix was 1 cm 50% and -4 station, cephalic. Induction was started at 3:50 AM with Cytotec placed vaginally and prior to this she did have a category 1 tracing. Fingersticks during her labor course were within normal limits. She was rechecked 4 hours after placement of Cytotec and had made minimal cervical change to 2 cm 50% and -3 station and tracing was category 1 with irregular contractions and she was comfortable. A second Cytotec was placed at 8:10AM. With this she started to grow uncomfortable.. She was examined at this time and was noted to have made no cervical change and was still 2 cm 50% and -3 station. She has received a single dose of 50 mg of fentanyl however this did not help and on reexamination she was 4 cm and 15 minutes later at 10:15 AM she was fully dilated and +1 station. She had had spontaneous rupture of membranes at an unknown time with clear fluid. She was set up in lithotomy position ready to push and tracing was category 1 thus far. Added at 9 AM reported DELIVERY NOTE: She was set up in lithotomy position and was pushing effectively. She was noted to be +3 station and continued pushing well. The head delivered in BULL pos ition, no nuchal cord was present. The shoulders and rest of the body followed with her next push. The baby's mouth and nose were suctioned and the baby was placed on the mother's belly. Once cord pulsations stopped the cord was clamped and cut. The placenta delivered spontaneously intact with membranes and was discarded. The fundus was noted to be firm and well contracted. The vagina and cervix were inspected and no cervical or sulcal lacerations were noted. She had a small a small first-degree vaginal laceration on the right side near the labia which was repaired with a [id number] suture with 3-0 on an SH after infiltrating the area with 2% lidocaine. Good reapproximation and hemostasis was achieved. Baby girl, Estefani Garcia born at 10:22 AM on 08/19/2021 with 7/8, weighing 7 pounds 4 ounces, 20 inches long. Placenta was delivered spontaneously intact with membranes at 10:31 AM on 08/19/2021.. Cotyledons were intact , centrally inserted umbilical cord with 3 vessels noted. Estimated blood loss 250 mL. Complications-none, both baby and mother were left to recover in a stable condition. This documentation was created by [employer] aviation tactical readiness officer software (known for inhe rent aviation tactical readiness officer error). Every effort was made to assure accuracy of aviation tactical readiness officer. Any obvious errors or omissions should be clarified with the author of the document. History History History 2 Term 2 Miscarriages/Ectopic 0 0 Living Children 2 Other History: 2, Para 2001 x 2 1------>12/19/2011, female, (Andra), 7 lbs 12 oz, 39 weeks, epidural anesthesia, vaginal delivery with no complications at [facility] in [place], [place]. 2----> 08/19/2021, female(Estefani Garcia) weighing 7 pounds 4 ounces at 38 weeks-induction for poorly controlled gestational diabetes on insulin. No anesthesia, vaginal delivery [place] Dr. Dillon [place] [facility] [place]. Intact perineum, first- degree right labial tear. Coding Level of Care Code Acute Route Sales Delivery Driver for Grace Brown
--- NOTE | 2021-08-19 12:17 | PM.OPHPUD ---
Labor & Delivery H&P Update Date of Procedure: August 19, 2021 Date H&P Performed: 08/18/21 H&P update information: I have reviewed H&P completed within last 30 days, I have examined patient prior to procedure, Changes to prior documentation as noted here and H&P is in [facility] EMR on date indicated Changes to previous documentation: Patient is in labor and is fully dilated Admission Diagnosis:
[2021-08-19] MEDS: levothyroxine 150 mcg Tablet PO (13:57)
[2021-08-19] MEDS: lanolin oint 7 gm 1 APPLIC TOPICAL (16:05)
[2021-08-19] MEDS: ibuprofen 800 mg tablet PO ×2 (16:06→22:04)
[2021-08-19] MEDS: docusate sodium 100 mg Capsule PO (18:06)
[2021-08-20 00:45] VITALS: BP 128/84; PULSE 73; RESP 18; O2SAT 96
[2021-08-20 01:22] LABS: Hematocrit 32.2 % (37.0-47.0); Hemoglobin 10.1 g/dL (11.5-15.3); Mean Corpuscular HGB Conc 31.4 g/dL (30.0-36.0); Mean Corpuscular Hemoglobin 24.8 pg (28.0-34.0); Mean Corpuscular Volume 79.1 fl (81-99); Mean Platelet Volume 12.2 fL (7.4-10.4); Platelet Count 204 10^3/cmm (130-400); Red Blood Count 4.07 10^6/uL (4.1-5.3); Red Cell Distribution Width 13.9 % (12.1-15.1); White Blood Count 12.5 10^3/uL (4.0-10.0)
[2021-08-20 04:45] VITALS: BP 144/89; PULSE 80; RESP 16; TEMP 36.7; O2SAT 98
[2021-08-20] MEDS: fluoxetine 20 mg Capsule PO (08:14)
[2021-08-20] MEDS: prenatal vitamin Capsule 1 CAP PO (08:14)
[2021-08-20] MEDS: docusate sodium 100 mg Capsule PO (08:14)
[2021-08-20] MEDS: ibuprofen 800 mg tablet PO (08:14)
[2021-08-20] MEDS: levothyroxine 150 mcg Tablet PO (08:15)
--- NOTE | 2021-08-20 08:16 | P.DS_ITS ---
Discharge Providers SPORTS PHYSIOLOGIST Date of Admission: 08/18/21 21:27 Date of Discharge: 08/20/21 Attending Provider at Admission: Adore Hastings MD Attending Provider at Discharge: Adore Hastings MD Primary Care Provider: PRE-DELIVERY DIAGNOSIS: 31-year-old 2 para 1-0-0-1 at 38 weeks and 1 day gestation Gestational diabetic on insulin-not well controlled Chronic hypertension-not on any medication, on aspirin COVID in -asymptomatic Anxiety and depression on medication Hypothyroidism on medication POST-DELIVERY DIAGNOSIS: Vaginal delivery on 08/19/2021 Chronic hypertension-not on any medication, on aspirin COVID in -asymptomatic Anxiety and depression on medication Hypothyroidism on medication PROCEDURE: Vaginal delivery on 08/19/2021 ANESTHESIA: 2% lidocaine DELIVERING PHYSICIAN: Adore Dillon FACOG PRE-DELIVERY COURSE: Ms. Ybarra is a 31-year-old 2 para 1-0-0-1 at 38 weeks and 0 days who was admitted to labor and delivery for scheduled induction of labor for poorly controlled gestational diabetes on insulin.? She was admitted at about 9 PM but induction was only started at 3 AM due to staffing ratios.? On admission she was doing well and tracing was category 1 and she was overall comfortable.? She had a category 1 tracing and cervix was 1 cm 50% and -4 station, cephalic.? Induction was started at 3:50 AM with Cytotec placed vaginally and prior to this she did have a category 1 tracing.? Fingersticks during her labor course were within normal limits.? She was rechecked 4 hours after placement of Cytotec and had made minimal cervical change to 2 cm 50% and -3 station and tracing was category 1 with irregular contractions and she was comfortable.? A second Cytotec was placed at 8:10AM.? With this she started to grow uncomfortable..? She was examined at this time and was noted to have made no cervical change and was still 2 cm 50% and -3 station.? She has received a single dose of 50 mg of fentanyl however this did not help and on reexamination she was 4 cm and 15 minutes later at 10:15 AM she was fully dilated and +1 station.? She had had spontaneous rupture of membranes at an unknown time with clear fluid.? She was set up in lithotomy position ready to push and tracing was category 1 thus far. Added at 9 AM reported DELIVERY? NOTE: She was set up in lithotomy position and was pushing effectively. She was noted to be? +3 station and continued pushing well. The head delivered in BULL position, no nuchal cord was present. The shoulders and rest of the body followed with her next push. The baby's mouth and nose were suctioned and the baby was placed on the mother's belly.? Once cord pulsations stopped the cord was clamped and cut.? The placenta delivered spontaneously intact with membranes and was discarded. The fundus was noted to be firm and well contracted. The vagina and cervix were inspected and no cervical or sulcal lacerations were noted.? She had a small a small first-degree vaginal laceration on the right side near the labia which was repaired with a [id number] suture with 3-0 on an SH after infiltrating the area with 2% lidocaine.? Good reapproximation and hemostasis was achieved. Baby girl, Estefani Garcia born at 10:22 AM on 08/19/2021 with 7/8, weighing 7 pounds 4 ounces, 20 inches long. Placenta was delivered spontaneously intact with membranes at 10:31 AM on 08/19/2021.. Cotyledons were intact , centrally inserted umbilical cord with 3 vessels noted. Estimated blood loss 250 mL. Complications-none, both baby and mother were left to recover in a stable condition. HOSPITAL COURSE: She underwent an uncomplicated vaginal delivery on 08/19/2021. She did well on day 0 and was ambulating well, tolerating regular diet, voiding freely, passing flatus. She was breast-feeding without difficulty and bonding well with her daughter. Pain was well-controlled with by mouth pain medication. She denied nausea, vomiting, fever, chills, shortness of breath, leg pain. She had moderate vaginal bleeding. On day # 1 she continued to do well with stable vital signs and stable hemoglobin at 10.1. She was discharged home on day 1 in a stable condition, as she desired early discharge. Warning signs for endometritis, preeclampsia, mastitis, DVT/PE were reviewed with her. Post delivery activity restrictions were also reviewed with her at all her questions were answered to her satisfaction. She plans on using the Mirena for contraception and this will be placed at 7 weeks. EXAM AT DISCHARGE: Gen.: No acute distress Heart: S1-S2 heard, regular rate and rhythm Lungs: Clear to auscultation bilaterally Abdomen: Soft, fundus firm below umbilicus, Legs: No calf tenderness, trace bilateral pitting pedal edema. CONDITION AT DISCHARGE: Stable This documentation was created by [employer] hardware sales assistant software (known for inherent hardware sales assistant error). Every effort was made to assure accuracy of hardware sales assistant. Any obvious errors or omissions should be clarified with the author of the document. Reason for Visit Reason for Visit: induction Information Peripartum Data: Delivery Method: Vaginal History History History 2 Term 2 Miscarriages/Ectopic 0 0 Living Children 2 Other History: 2, Para 2001 x 2 1------>12/19/2011, female, (Andra), 7 lbs 12 oz, 39 weeks, epidural anesthesia, vaginal delivery with no complications at [facility] in [place], [place]. 2----> 08/19/2021, female(Estefani Garcia) weighing 7 pounds 4 ounces at 38 weeks-induction for poorly controlled gestational diabetes on insulin. No anesthesia, [place] [facility] [place] Intact perineum, first- degree right labial tear. Discharge Data Studies Completed and Pending Laboratory Results WBC 12.5 10^3/uL (4.0-10.0) H 08/20/21 00:45 RBC 4.07 10^6/uL (4.1-5.3) L 08/20/21 00:45 Hgb 10.1 g/dL (11.5-15.3) L 08/20/21 00:45 Hct 32.2 % (37.0-47.0) L 08/20/21 00:45 MCV 79.1 fl (81-99) L 08/20/21 00:45 MCH 24.8 pg (28.0-34.0) L 08/20/21 00:45 MCHC 31.4 g/dL (30.0-36.0) 08/20/21 00:45 RDW 13.9 % (12.1-15.1) 08/20/21 00:45 Plt Count 204 10^3/cmm (130-400) 08/20/21 00:45 MPV 12.2 fL (7.4-10.4) H 08/20/21 00:45 Neut % (Auto) 78.2 % 08/18/21 20:56 Lymph % (Auto) 13.7 % 08/18/21 20:56 [place] % (Auto) 5.5 % 08/18/21 20:56 Eos % (Auto) 2.0 % 08/18/21 20:56 Baso % (Auto) 0.2 % 08/18/21 20:56 Neut # (Auto) 8.88 10^3/uL (1.8-7.7) H 08/18/21 20:56 Lymph # (Auto) 1.6 10^3/uL (0.8-4.8) 08/18/21 20:56 [place] # (Auto) 0.6 10^3/uL (0.2-0.9) 08/18/21 20:56 Eos # (Auto) 0.2 10^3/uL (0.0-0.8) 08/18/21 20:56 Baso # (Auto) 0.0 10^3/uL (0.0-0.1) 08/18/21 20:56 Nucleated RBC % (auto) 0 % 08/18/21 20:56 Nucleated RBCs # 0.0 /100WBC 08/18/21 20:56 POC Glucose 90 mg/dL (70-110) 08/19/21 06:04 Urine Color Yellow (Yellow) 08/18/21 21:30 Urine Appearance Hazy (CLEAR) A 08/18/21 21:30 Urine pH 5 (5-7) 08/18/21 21:30 Ur Specific [place] 1.025 (1.005-1.030) 08/18/21 21:30 Urine Protein Neg (Negative) 08/18/21 21:30 Urine Glucose (UA) 2+ (Normal) H 08/18/21 21:30 Urine Ketones 1+ (Negative) H 08/18/21 21:30 Urine Blood 2+ (Negative) H 08/18/21 21:30 Urine Nitrate Negative (Negative) 08/18/21 21:30 Urine Bilirubin Neg (Negative) 08/18/21 21:30 Urine Urobilinogen 1 mg/dL (Negative) H 08/18/21 21:30 Ur Leukocyte Esterase Negative (Negative) 08/18/21 21:30 Urine RBC 5-10 /hpf (0-2) H 08/18/21 21:30 Urine WBC 0-4 /hpf (0-5) H 08/18/21 21:30 Ur Squamous Epith Cells 10-15 /hpf (0-5) H 08/18/21 21:30 Amorphous Sediment Not Reportable 08/18/21 21:30 Urine Bacteria Trace /hpf (NONE) 08/18/21 21:30 Urine Mucus 2+ /hpf 08/18/21 21:30 U Random Total Protein 19 mg/dL 08/18/21 21:30 Urine Creatinine 179 mg/dL (28-217) 08/18/21 21:30 Protein/Creatinin Ratio 0.11 mg/mg CR 08/18/21 21:30 Vitals Last Vital Signs Temp 98.1 F 08/20/21 04:45 Pulse 80 08/20/21 04:45 Resp 16 08/20/21 04:45 BP 144/89 08/20/21 04:45 Pulse Ox 98 08/20/21 04:45 Discharge Plan Discharge Patient Disposition: Home Condition: Stable Prescriptions: New ibuprofen 800 mg tablet 800 mg PO Q8H Qty: 30 0RF docusate sodium 100 mg Capsule 100 mg PO BID PRN (Reason: constipation) Qty: 30 0RF Continued Gummies 400 mcg-35 mg- 25 mg-5 mg tablet,chewable PO 0RF loratadine [Claritin] 10 mg tablet 10 mg PO DAILY PRN0RF levothyroxine 150 mcg tablet 150 mcg PO DAILY Qty: 60 0RF fluoxetine [Prozac] 20 mg capsule 20 mg PO DAILY Qty: 30 0RF Discontinued aspirin 81 mg tablet,delayed release (DR/EC) 81 mg PO DAILY Qty: 90 3RF Novolin R Flexpen 100 unit/mL (3 mL) insulin pen 15 unit SUBCUT .COMPLEX Qty: 15 0RF Hold Instructions: Doctor's Order Rx Instructions: 15 units SUBCUT sliding scale:Blood sugar 130-145-2 units, 573-930-9evret; 308-350-5aqgcw; Humulin N NPH Insulin KwikPen 100 unit/mL (3 mL) insulin pen See Rx Instructions SUBCUT .COMPLEX Qty: 15 0RF Rx Instructions: 23 units in a.m., 20 units h.s. SUBCUT; No Action (DME) Blood Glucose Test Strip See Rx Instructions .Route Qty: 90 2RF Rx Instructions: As directed (DME) breast pump [Pump In Style Advanced] Device See Rx Instructions .ROUTE .MEDSUPPLY Qty: 1 0RF Rx Instructions: As directed Discharge Orders: Discharge Order (Routine); Ordered 08/20/21 Ordered By: Adore Hastings Referrals: Adore Hastings MD [Physician] - 10/14/21 9:00 am (6 week scheduled for 10/14/21 @9:00. Please fast prior to your appointment. ) Discharge Diet: Regular Discharge Activity: Limit activity as instructed Patient Instructions: Depression (DC), Bleeding (DC), Preeclampsia and Eclampsia After Delivery (GEN), OB Discharge Report, OB Food/Drug Interaction Guide, OB Care at Home, Opioid Safety, OB Vaginal Deliveries - [facility] Activity Restrictions/Additional Instructions: No heavy lifting for 6 weeks, pelvic rest for 6 weeks Follow-up with Dr. Dillon 6-week with 2-hour fasting GTT and 7-week IUD insertion Emergency room precautions reviewed Discharge Attestations SPORTS PHYSIOLOGIST Time Spent in Discharge Care*: greater than 30 min Coding Level of Care Code Acute General Farm Hand for Chg Kevin
[2021-08-20 09:45] VITALS: BP 122/78; PULSE 94; RESP 15; TEMP 36.8; O2SAT 98
[2021-08-20 12:40] VITALS: BP 120/83; PULSE 90; RESP 17; TEMP 36.7; O2SAT 98
[2021-08-20 13:49] VITALS: BP 120/83; PULSE 90; RESP 17; TEMP 36.7; O2SAT 98
== END 2021-08-20 13:14 | disposition home or self-care (01) | DRG 806 ==
LOC: OPOB 08-19 06:26 → OBGYN 08-19 06:26
PROVIDERS: Admitting Provider Obstetrics & Gynecology; PCP Family Medicine; Visit Provider Obstetrics & Gynecology
DX: O99.344 Other mental disorders complicating childbirth (principal); O10.02 Pre-existing essential hypertension complicating childbirth; Z37.0 Single live birth; O99.284 Endocrine, nutritional and metabolic diseases complicating childbirth; O70.0 First degree perineal laceration during delivery; O24.424 Gestational diabetes mellitus in childbirth, insulin controlled; O75.89 Other specified complications of labor and delivery; F41.8 Other specified anxiety disorders; Z86.16 Personal history of COVID-19; I49.3 Ventricular premature depolarization
CPT/HCPCS: 36415; 36416; 59025; 59409; 81000; 81001; 82570; 82962; 84156; 85025; 85027; 96372; 96374; J1815; J3010

== ENCOUNTER → 2021-10-14 09:30 | Outpatient (BNVA) | payer MEDICAID, SELFPAY | PROVIDERS: PCP Family Medicine; Visit Provider Obstetrics & Gynecology | DX: O24.419 Gestational diabetes mellitus in pregnancy, unspecified control (principal); Z3A.00 Weeks of gestation of pregnancy not specified | CPT/HCPCS: 82947; 84443 ==

== ENCOUNTER → 2022-03-26 13:28 | Outpatient (BNVA) | payer MEDICAID, SELFPAY | PROVIDERS: PCP Family Medicine; Visit Provider Family Medicine | DX: E03.9 Hypothyroidism, unspecified (principal) | CPT/HCPCS: 84443 ==

== ENCOUNTER → 2022-06-30 09:25 | Outpatient (BNVA) | payer MEDICAID, SELFPAY | PROVIDERS: PCP Family Medicine; Visit Provider Family Medicine | DX: E03.9 Hypothyroidism, unspecified (principal); I10 Essential (primary) hypertension; R73.9 Hyperglycemia, unspecified; F41.9 Anxiety disorder, unspecified; F32.A Depression, unspecified; Z13.1 Encounter for screening for diabetes mellitus; Z13.220 Encounter for screening for lipoid disorders; Z13.6 Encounter for screening for cardiovascular disorders | CPT/HCPCS: 80048; 80061; 83036; 84439; 84443; 84481 ==

== ENCOUNTER → 2022-12-08 10:59 | Outpatient (BNVA) | payer MEDICAID, SELFPAY | PROVIDERS: PCP Family Medicine; Visit Provider Family Medicine | DX: E11.9 Type 2 diabetes mellitus without complications (principal); E03.9 Hypothyroidism, unspecified; Z30.09 Encounter for other general counseling and advice on contraception | CPT/HCPCS: 80053; 83036; 84439; 84443; 84481 ==

== ENCOUNTER → 2023-06-22 11:23 | Outpatient (BNVA) | payer MEDICAID, SELFPAY | PROVIDERS: PCP Family Medicine; Visit Provider Family Medicine | DX: E03.9 Hypothyroidism, unspecified (principal); L40.9 Psoriasis, unspecified; E11.9 Type 2 diabetes mellitus without complications | CPT/HCPCS: 80053; 80061; 83036; 84439; 84443; 84481; 85025; 85651; 86038; 86140 ==

== ENCOUNTER 2023-07-14 09:52 | Outpatient (CLI) | payer MEDICAID, SELFPAY ==
[2023-07-14 10:53] LABS: Basophils % 0.5 %; Eosinophils # 0.2 10^3/uL (0.0-0.8); Eosinophils % 1.9 %; Hematocrit 46.3 % (36-47); Lymphocytes # 1.4 10^3/uL (0.8-4.8); Lymphocytes % 18.5 %; Mean Corpuscular HGB Conc 32.4 g/dL (30-55); Mean Corpuscular Hemoglobin 28.1 pg (27-33); Mean Corpuscular Volume 86.7 fl (85-98); Mean Platelet Volume 10.8 fL (7.4-10.4); Monocytes # 0.5 10^3/uL (0.2-0.9); Monocytes % 6.6 %; Neutrophils # 5.59 10^3/uL (1.8-7.7); Neutrophils % 72.2 %; Nucleated Red Blood Cells % 0 %; Platelet Count 293 10^3/cmm (157-399); Red Blood Count 5.34 10^6/uL (3.85-5.65); Red Cell Distribution Width 12.7 % (12.1-15.1); White Blood Count 7.74 10^3/uL (3.29-11.43)
[2023-07-14 11:08] LABS: Alanine Aminotransferase 9 U/L (0-33); Albumin Level 4.4 g/dL (3.5-5.2); Alkaline Phosphatase 94 U/L (35-105); Aspartate Amino Transferase 16 U/L (0-32); Globulin 3.5 g/dL (1.3-4.6); Total Bilirubin 0.8 mg/dL (0.15-1.2); Total Protein 7.9 g/dL (6.6-8.7)
[2023-07-14 11:29] LABS: Hepatitis A Antibody IgM Non-Reactive (Nonreactive); Hepatitis B Core AB, Total Non-Reactive (Nonreactive); Hepatitis B Surface AB 18.1 (11.5-1000); Hepatitis B Surface Antigen Non-Reactive (Nonreactive); Hepatitis C Virus Antibody Non-Reactive (Nonreactive)
[2023-07-15 13:11] LABS: COMPLEMENT COMPONENT C3C 122 mg/dL (83-193); COMPLEMENT COMPONENT C4C 26 mg/dL (15-57)
[2023-07-15 13:45] LABS: CENTROMERE B ANTIBODY <1.0 NEG AI (<1.0 NEG); JO-1 ANTIBODY <1.0 NEG AI (<1.0 NEG); RNP ANTIBODY <1.0 NEG AI (<1.0 NEG); SCL-70 ANTIBODY <1.0 NEG AI (<1.0 NEG); SJOGREN'S ANTIBODY (SS-A) <1.0 NEG AI (<1.0 NEG); SM ANTIBODY <1.0 NEG AI (<1.0 NEG); SS-B <1.0 NEG AI (<1.0 NEG)
[2023-07-16 07:10] LABS: THYROID PEROXIDASE ANTIBODIES 1 IU/mL (<9)
[2023-07-16 10:29] LABS: ANA SCREEN, IFA POSITIVE (NEGATIVE)
[2023-07-16 13:10] LABS: COMPLEMENT, TOTAL (CH50) 43 U/mL (31-60)
[2023-07-22 13:05] LABS: DNA AB (DS) CRITHIDIA,IFA NEGATIVE (NEGATIVE)
== END 2023-07-14 09:53 | disposition home or self-care (01) ==
LOC: LAB 09:55
PROVIDERS: PCP Family Medicine; Visit Provider Nurse Practitioner Family
DX: L40.0 Psoriasis vulgaris (principal); K11.7 Disturbances of salivary secretion; M06.4 Inflammatory polyarthropathy
CPT/HCPCS: 80076; 85025; 86160; 86162; 86235; 86255; 86376; 86480; 86705; 86706; 86709; 86803; 87340

== ENCOUNTER 2023-08-24 12:42 | Outpatient (CLI) | payer MEDICAID, SELFPAY ==
[2023-08-26 11:34] LABS: Quantiferon Mitogen 9.72 IU/mL; Quantiferon Nil 0.04 IU/mL; Quantiferon TB Gold NEGATIVE (NEGATIVE)
== END 2023-08-24 12:43 | disposition home or self-care (01) ==
PROVIDERS: PCP Family Medicine; Visit Provider Nurse Practitioner Family
DX: L40.0 Psoriasis vulgaris (principal)
CPT/HCPCS: 86480

== ENCOUNTER → 2023-12-13 10:20 | Outpatient (BNVA) | payer MEDICAID, SELFPAY | PROVIDERS: PCP Family Medicine; Visit Provider Family Medicine | DX: E11.9 Type 2 diabetes mellitus without complications (principal); E03.9 Hypothyroidism, unspecified | CPT/HCPCS: 80048; 83036; 84443 ==

== ENCOUNTER → 2025-02-12 15:09 | Outpatient (BNVA) | payer MEDICAID, SELFPAY | PROVIDERS: PCP Family Medicine; Visit Provider Family Medicine | DX: E11.9 Type 2 diabetes mellitus without complications (principal); E03.9 Hypothyroidism, unspecified; I10 Essential (primary) hypertension | CPT/HCPCS: 80053; 80061; 83036; 84439; 84443; 84481 ==